=== PATIENT | male | born 1965 | race African-American/Black ===

== ENCOUNTER 2017-10-13 07:18 | Day surgery (SDC) | payer OTHER ==
[2017-10-13] MEDS ORDERED: Phenylephrine HCl 10 MG/ML 1 ML VIAL ONE (07:40)
[2017-10-13] MEDS ORDERED: LIDOCAINE VISCOUS 2% SOLN 15 ML UDC ONE (07:41)
[2017-10-13] MEDS ORDERED: LIDOCAINE 4% TOP SOLUTION ONE (07:41)
[2017-10-13] MEDS ORDERED: GLYCOPYRROLATE 0.2 MG/ML SYR ONE (07:41)
[2017-10-13] MEDS ORDERED: LIDOCAINE 1% MPF 30 ML VIAL ONE (07:41)
[2017-10-13] MEDS ORDERED: Ringers Lactate 1,000 ML IV ONE (07:42)
[2017-10-13] MEDS ORDERED: LIDOCAINE 4% TOP SOLUTION TOP ONE (07:50)
[2017-10-13] MEDS ORDERED: PROPOFOL 200 MG/20 ML VIAL IV ONE (08:20)
[2017-10-13] MEDS ORDERED: LIDOCAINE 1% MPF 5 ML VIAL ONE (08:20)
[2017-10-13] MEDS ORDERED: MIDAZOLAM HCL 2 MG/2 ML INJ ONE (08:20)
[2017-10-13] MEDS ORDERED: FENTANYL CITR 100 MCG/2 ML ONE (08:20)
--- NOTE | 2017-10-13 08:42 | P.OP ---
Date of Service: 10/13/17 (Bronchoscopy with left lower lobe biopsy and BAL) Findings and Operative Technique Patient is 52 years of age evaluated by me for bilateral pneumonia unresponsive to treatment with conventional antibiotics he a he had persistent symptoms as a reason for bronchoscopy After obtaining informed consent from the patient he was premedicated by anesthesia Findings normal vocal cord he had been lesions throughout is respiratory trach possible thrush suddenly had infection no endobronchial lesions visible difficult bronchoscopy with frequent desaturations difficult to visualize the respiratory tract with some inflammation and bleeding multiple biopsies were performed as above I suspect he may have an HIV infection I have also ordered an HIV test
--- NOTE | 2017-10-13 10:05 | RAD REPORT ---
[facility] CLINICAL HISTORY: Chest pain COMPARISON: October 05, 2017 FINDINGS: A pneumothorax is not seen status post bronchoscopy. Bilateral pulmonary opacities are without significant change IMPRESSION: A pneumothorax is not seen status post bronchoscopy.
--- NOTE | 2017-10-13 10:24 | RAD REPORT ---
EXAM DESCRIPTION: RAD - FLUORO-GUIDE FOR BRONCH [id number] - 10/13/2017 9:05 am CLINICAL HISTORY: Bronchoscopy/lung mass. FINDINGS: Several fluoroscopic spot images are submitted. They demonstrate a bronchoscope within the lung. The examination was performed by Dr. Salgado
[2017-10-15 16:23] LABS: HIV 1/2 Antibody Diff Not indicated.; HIV AG/AB 4TH GEN Non-reactive (Non-reactive)
== END 2017-10-13 10:18 | disposition home or self-care (01) ==
LOC: ENDO 07:18
PROVIDERS: ATTEND Internal Medicine Sleep Medicine
PROC: 0B9J8ZX Drainage of Left Lower Lung Lobe, Via Natural or Artificial Opening Endoscopic, Diagnostic (ICD-10-PCS; 2017-10-13)
PROC: 0BDJ8ZX Extraction of Left Lower Lung Lobe, Via Natural or Artificial Opening Endoscopic, Diagnostic (ICD-10-PCS; principal; 2017-10-13 08:00)
DX: J18.9 Pneumonia, unspecified organism (principal); J44.1 Chronic obstructive pulmonary disease with (acute) exacerbation; Z72.0 Tobacco use; Z88.0 Allergy status to penicillin
CPT/HCPCS: 71045; 76000; 87015; 87070; 87102; 87116; 87206; 87389; 88108; 88305; 88312; J2250; J2370; J3010

== ENCOUNTER 2017-11-27 09:26 | Day surgery (SDC) | payer OTHER ==
[2017-11-27] MEDS ORDERED: NA CHLORIDE 0.9% 1,000 ML ONE (09:44)
[2017-11-27] MEDS ORDERED: NALOXONE 0.4 MG/ML VIAL ONE (10:20)
[2017-11-27] MEDS ORDERED: FENTANYL CITR 100 MCG/2 ML ONE (10:20)
[2017-11-27] MEDS ORDERED: FLUMAZENIL 0.1 MG/ML (5 mL VIAL) IV ONE (10:20)
[2017-11-27] MEDS ORDERED: MIDAZOLAM HCL 2 MG/2 ML INJ ONE (10:20)
--- NOTE | 2017-11-27 14:18 | RAD REPORT ---
EXAM DESCRIPTION: [facility] Single View11/27/2017 1:32 pm CLINICAL HISTORY: Lung mass COMPARISON: October 2017 FINDINGS: A pneumothorax is not present status post left lung biopsy IMPRESSION: No evidence of a pneumothorax
--- NOTE | 2017-11-27 18:00 | RAD REPORT ---
EXAM DESCRIPTION: CT - Lung Biopsy Perc w/CT - 11/27/2017 11:29 am CLINICAL HISTORY: Left lower lobe mass. CLINICAL HISTORY: The patient's October 2017 cat scan was reviewed. TECHNIQUE: The patient was placed prone into the CT scanner. The left lower lobe opacity was localiz ed. The patient was pre-medicated with Versed at and fentanyl intravenously. Conscious sedation was perfo rmed and vital signs monitored by a nurse in attendance for approximately 45 minutes. The skin and subcutaneous tissues were anesthetized with lidocaine. Under CT guidance a 17-gauge need le was placed into the left lower lobe opacity. Through this an 18 gauge needle was placed and three 1-2 cm core specimens were obtained and given to pathology. The post biopsy images do not demonstrate a pneumothorax. The patient experienced no immediate complication. IMPRESSION: Core biopsies of a left lower lobe opacity.
== END 2017-11-27 14:29 | disposition home or self-care (01) ==
LOC: DS 09:26
PROVIDERS: ATTEND Internal Medicine Sleep Medicine
PROC: 0BBJ3ZX Excision of Left Lower Lung Lobe, Percutaneous Approach, Diagnostic (ICD-10-PCS; principal; 2017-11-27)
DX: R91.8 Other nonspecific abnormal finding of lung field (principal); J47.1 Bronchiectasis with (acute) exacerbation; Z72.0 Tobacco use
CPT/HCPCS: 32405; 71045; 76942; 77012; 88305; J2250; J2310; J3010; J7030